=== PATIENT | male | born 1955 | race Two or more races ===

== ENCOUNTER 2020-05-31 08:37 | Inpatient (IN) | payer MEDICAID ==
[~2020-05-31] VITALS: Ht 175.3 cm; Wt 81.6 kg
[2020-05-31] MEDS ORDERED: SODIUM CHLORIDE 0.9% 1,000 ML IV ONE (09:20)
[2020-05-31] MEDS ORDERED: ASPIRIN 81MG TABLET PO ONE (09:30)
[2020-05-31] MEDS ORDERED: NITROGLYCERIN 0.4MG TABLET SL SL PRN (09:30)
[2020-05-31 09:35] LABS: BASOPHILS % 0.9 % (0.0-2.0); HEMATOCRIT. 47.5 % (42.0-52.0); HEMOGLOBIN. 15.7 g/dL (14.0-18.0); LYMPHOCYTES % 20.6 % (20.0-50.0); MEAN CORPUSCULAR HEMOGLOBIN 31.6 pg (28.0-32.0); MEAN CORPUSCULAR VOLUME 95.4 fL (80.0-94.0); MEAN PLATELET VOLUME 7.5 fl (7.4-10.4); MONOCYTES % 6.2 % (2.0-8.0); NEUTROPHILS % 69.3 % (40.0-76.0); PLATELET 206 x1000/uL (130-400); RED BLOOD CELL COUNT 4.98 mill/uL (4.7-6.1); RED CELL DISTRIBUTION WIDTH 13.6 % (11.6-14.6)
[2020-05-31 09:37] LABS: CHLORIDE 107 mEq/L (98-107)
[2020-05-31 09:42] LABS: ETHANOL BLOOD < 10 mg/dL
[2020-05-31 09:43] LABS: D-DIMER 0.66 mg/L FEU (<0.50); PARTIAL THROMBOPLASTIN TIME 27.5 sec (23.4-31.0); PROTHROMBIN TIME 10.7 sec (9.6-11.0)
[2020-05-31] MEDS ORDERED: IOHEXOL-350 100 ML BOTTLE ONE (11:53)
[2020-05-31 12:29] LABS: *AMPHETAMINES SCREEN URINE NEGATIVE (NEGATIVE); *BARBITURATES SCREEN URINE NEGATIVE (NEGATIVE); *BENZODIAZEPINES SCREEN URINE NEGATIVE (NEGATIVE); *COCAINE SCREEN URINE PRESUMTIVE POSITIVE (NEGATIVE)
[2020-05-31 12:30] LABS: METHADONE URINE SCREEN NEGATIVE (NEGATIVE); OPIATES URINE SCREEN NEGATIVE (NEGATIVE); PHENCYCLIDINE URINE SCREEN NEGATIVE (NEGATIVE)
[2020-05-31 12:31] LABS: CANNABINOID URINE SCREEN NEGATIVE (NEGATIVE)
[2020-05-31] MEDS ORDERED: DOCUSATE SODIUM 100MG CAPSULE PO PRN (16:45)
[2020-05-31] MEDS ORDERED: ONDANSETRON HCL 4MG/2ML INJ IV PRN (16:45)
[2020-05-31] MEDS ORDERED: IPRATROPIUM/ALBUTEROL 0.5-3(2.5)MG/3ML NEB HHN PRN (16:45)
[2020-05-31] MEDS ORDERED: MAGNESIUM/ALUMINUM HYDROXIDE/SIMETHICONE 30ML UDC PO PRN (16:45)
[2020-05-31] MEDS ORDERED: ACETAMINOPHEN 325MG TABLET PO PRN (16:45)
[2020-05-31] MEDS ORDERED: HYDROCODONE/ACETAMINOPHEN 5/325MG TABLET PO PRN (16:45)
[2020-05-31] MEDS: ENOXAPARIN 40MG/0.4ML SYR SUBCUT SCH (17:58)
[2020-05-31 22:29] VITALS: BP 162/80
[2020-05-31] MEDS ORDERED: INFLUENZA VIRUS VACCINE(AFLURIA) 0.5ML SYR IM ONE (23:30)
[2020-06-01] VITALS: BP 141/82
[2020-06-01] MEDS ORDERED: LISI10TA5 MT (01:05)
[2020-06-01] MEDS ORDERED: LISI10TA5 PO (01:05)
[2020-06-01 05:35] VITALS: BP 167/105
[2020-06-01] MEDS: CLONIDINE 0.1MG TABLET PO PRN (05:37)
[2020-06-01 08:00] VITALS: BP 147/99
[2020-06-01] MEDS: PANTOPRAZOLE SODIUM 40 MG/VIAL IV SCH (09:52)
[2020-06-01 10:51] LABS: BASOPHILS % 0.6 % (0.0-2.0); EOSINOPHILS % 3.2 % (0.0-5.0); HEMATOCRIT. 43.4 % (42.0-52.0); HEMOGLOBIN. 14.5 g/dL (14.0-18.0); LYMPHOCYTES % 21.4 % (20.0-50.0); MEAN CORPUSCULAR HEMOGLOBIN 31.5 pg (28.0-32.0); MEAN CORPUSCULAR VOLUME 94.2 fL (80.0-94.0); MEAN PLATELET VOLUME 7.3 fl (7.4-10.4); MONOCYTES % 6.4 % (2.0-8.0); NEUTROPHILS % 68.4 % (40.0-76.0); PLATELET 197 x1000/uL (130-400); RED BLOOD CELL COUNT 4.61 mill/uL (4.7-6.1); RED CELL DISTRIBUTION WIDTH 13.2 % (11.6-14.6)
[2020-06-01 10:58] LABS: CHLORIDE 109 mEq/L (98-107)
[2020-06-01 11:04] LABS: PHOSPHORUS 2.5 mg/dL (2.5-4.9)
[2020-06-01 11:06] LABS: HDL CHOLESTEROL 39 mg/dL (40-59); LDL CHOLESTEROL 86 mg/dL (5-100)
[2020-06-01 12:00] VITALS: BP 124/76
[2020-06-01 16:00] VITALS: BP 147/86
[2020-06-01] MEDS: ENOXAPARIN 40MG/0.4ML SYR SUBCUT SCH (16:53)
[2020-06-01 20:00] VITALS: BP 139/90
[2020-06-02] VITALS: BP 138/99
[2020-06-02 04:00] VITALS: BP 130/92
[2020-06-02 05:24] LABS: BASOPHILS % 0.7 % (0.0-2.0); EOSINOPHILS % 4.2 % (0.0-5.0); HEMOGLOBIN. 14.3 g/dL (14.0-18.0); LYMPHOCYTES % 31.1 % (20.0-50.0); MEAN CORPUSCULAR HEMOGLOBIN 31.2 pg (28.0-32.0); MEAN PLATELET VOLUME 7.6 fl (7.4-10.4); MONOCYTES % 7.3 % (2.0-8.0); NEUTROPHILS % 56.7 % (40.0-76.0); PLATELET 196 x1000/uL (130-400); RED BLOOD CELL COUNT 4.57 mill/uL (4.7-6.1); RED CELL DISTRIBUTION WIDTH 13.5 % (11.6-14.6)
[2020-06-02 05:28] LABS: CHLORIDE 108 mEq/L (98-107)
[2020-06-02 08:00] VITALS: BP 144/91
[2020-06-02] MEDS: PANTOPRAZOLE SODIUM 40 MG/VIAL IV SCH (09:00)
[2020-06-02 12:13] VITALS: BP 163/110
[2020-06-02] MEDS: CLONIDINE 0.1MG TABLET PO PRN (12:20)
[2020-06-02 15:56] VITALS: BP 125/86
[2020-06-02 16:00] VITALS: BP 125/86
[2020-06-03] MEDS ORDERED: FAMOTIDINE 20MG TABLET PO SCH (09:00)
== END 2020-06-02 17:25 | disposition home or self-care (01) | DRG 816 ==
LOC: ER 08:37 → 7WST 10:03 → CANRESERV 16:37 → ENRESERV 16:37 → 8WST 06-01 22:11
PROVIDERS: ADMIT Internal Medicine; ATTEND Internal Medicine
DX: T40.5X1A Poisoning by cocaine, accidental (unintentional), initial encounter (principal); I10 Essential (primary) hypertension; R79.89 Other specified abnormal findings of blood chemistry; J98.11 Atelectasis; R59.0 Localized enlarged lymph nodes; J68.0 Bronchitis and pneumonitis due to chemicals, gases, fumes and vapors; Z20.828 Contact with and (suspected) exposure to other viral communicable diseases; Y92.89 Other specified places as the place of occurrence of the external cause; K21.9 Gastro-esophageal reflux disease without esophagitis
CPT/HCPCS: 36415; 71045; 71275; 80048; 80053; 80061; 80305; 80320; 83735; 83880; 84100; 84443; 84484; 85025; 85379; 87635; 93005; 93306; 93970; 99285; C9113; J1650; J7030; Q9967; G0480

== ENCOUNTER 2021-07-30 11:25 | Emergency (ER) | payer MEDICAID ==
[~2021-07-30] VITALS: Ht 175.3 cm; Wt 81.6 kg
[~2021-07-30 11:25] MED LIST: LISI10TA26 PO
[2021-07-30 12:17] LABS: CLARITY URINE CLEAR (CLEAR); COLOR URINE YELLOW (YELLOW); KETONES URINE NEGATIVE (NEGATIVE); LEUKOCYTE ESTERASE URINE 2+ (NEGATIVE); NITRITE URINE NEGATIVE (NEGATIVE); OCCULT BLOOD URINE 3+ (NEGATIVE); PROTEIN URINE 1+ (NEGATIVE); SPECIFIC GRAVITY URINE 1.004 (1.005-1.030); UROBILINOGEN URINE 0.2 E.U./dL (0.2-1.0)
[2021-07-30 13:20] VITALS: BP 155/90
[2021-07-30] MEDS ORDERED: CIPR-263 MT (13:27)
== END 2021-07-30 13:39 | disposition home or self-care (01) ==
LOC: ER 11:25
DX: N40.1 Benign prostatic hyperplasia with lower urinary tract symptoms (principal); N39.0 Urinary tract infection, site not specified; R31.9 Hematuria, unspecified
CPT/HCPCS: 51702; 81003; 99284

== ENCOUNTER 2021-09-26 05:06 | Emergency (ER) | payer MEDICAID ==
[~2021-09-26] VITALS: Ht 175.3 cm; Wt 84.0 kg
[~2021-09-26 05:06] MED LIST changes: +CIPR-263 MT
[2021-09-26 05:36] VITALS: BP 150/114
[2021-09-26 06:03] LABS: CHLORIDE 110 mEq/L (98-107)
[2021-09-26 06:05] LABS: CLARITY URINE CLEAR (CLEAR); COLOR URINE YELLOW (YELLOW); KETONES URINE TRACE (NEGATIVE); LEUKOCYTE ESTERASE URINE NEGATIVE (NEGATIVE); NITRITE URINE POSITIVE (NEGATIVE); OCCULT BLOOD URINE 2+ (NEGATIVE); PH URINE 5.5 (4.5-8.0); PROTEIN URINE 3+ (NEGATIVE); SPECIFIC GRAVITY URINE 1.021 (1.005-1.030); UROBILINOGEN URINE 0.2 E.U./dL (0.2-1.0)
[2021-09-26 06:14] LABS: BASOPHILS % 0.4 % (0.0-2.0); EOSINOPHILS % 0.1 % (0.0-5.0); HEMATOCRIT. 46.7 % (42.0-52.0); HEMOGLOBIN. 15.7 g/dL (14.0-18.0); LYMPHOCYTES % 12.8 % (20.0-50.0); MEAN CORPUSCULAR HEMOGLOBIN 31.2 pg (28.0-32.0); MEAN CORPUSCULAR VOLUME 92.8 fL (80.0-94.0); MEAN PLATELET VOLUME 7.7 fl (7.4-10.4); MONOCYTES % 5.9 % (2.0-8.0); NEUTROPHILS % 80.8 % (40.0-76.0); PLATELET 260 x1000/uL (130-400); RED BLOOD CELL COUNT 5.03 mill/uL (4.7-6.1)
[2021-09-26] MEDS ORDERED: LEVOFLOXACIN 250MG TABLET PO ONE (06:45)
[2021-09-26] MEDS ORDERED: LEVO250T58 PO (06:46)
== END 2021-09-26 07:14 | disposition home or self-care (01) ==
LOC: ER 05:06
DX: N39.0 Urinary tract infection, site not specified (principal); Z88.0 Allergy status to penicillin; Z98.890 Other specified postprocedural states; Z20.822 Contact with and (suspected) exposure to COVID-19
CPT/HCPCS: 36415; 51702; 71045; 80053; 81003; 84484; 85025; 87426; 87804; 93005; 99285

== ENCOUNTER 2021-09-29 09:25 | Emergency (ER) | payer MEDICAID ==
[~2021-09-29] VITALS: Ht 175.3 cm; Wt 84.0 kg
[~2021-09-29 09:25] MED LIST changes: +LEVO250T58 PO
[2021-09-29 10:13] VITALS: BP 137/76
[2021-09-29] MEDS ORDERED: IBUP-2028 MT (10:26)
== END 2021-09-29 10:40 | disposition home or self-care (01) ==
LOC: ER 09:25
DX: R33.9 Retention of urine, unspecified (principal); N39.0 Urinary tract infection, site not specified; Z91.14 Patient's other noncompliance with medication regimen; Z93.6 Other artificial openings of urinary tract status
CPT/HCPCS: 99283